=== PATIENT | male | born 1990 | race African-American/Black ===

== ENCOUNTER 2018-08-10 13:04 | Inpatient (IN) | payer OTHER ==
[~2018-08-10] VITALS: Ht 182.9 cm; Wt 81.2 kg
[~2018-08-10 13:04] MED LIST: CLARITIN10 MG PO; NORCO 5-325 TA1 EACH PO; NORCO 7.5-3251 EACH PO
[2018-08-10 13:13] VITALS: BP 143/92
[2018-08-10 13:30] LABS: ABSOLUTE NEUTROPHILS 7.9 thou/uL (1.4-8.2); BASOPHILS 0.3 % (0.0-2.0); EOSINOPHILS 0.2 % (0.0-3.0); HEMATOCRIT 53.3 % (42.0-52.0); HEMOGLOBIN 18.4 gm/dL (14.0-18.0); LYMPHOCYTES 17.2 % (24.0-44.0); MCH 28.6 pg (26.0-34.0); MCHC 34.6 g/dL (28.0-37.0); MCV 82.7 fL (80.0-100.0); MONOCYTES 7.5 % (1.0-8.0); PLATELET COUNT 203 thou/uL (150-400); POLYS 74.8 % (36.0-66.0); RBC 6.44 mil/uL (4.50-6.00); RDW 14.4 % (10.5-14.5); WBC 10.6 thou/uL (4.0-11.0)
[2018-08-10 13:40] LABS: CALCIUM 10.7 mg/dL (8.5-10.1); CREATININE 5.6 mg/dL (0.7-1.3)
[2018-08-10 13:46] LABS: TOTAL BILIRUBIN 0.7 mg/dL (<0.1-1.0)
[2018-08-10 14:25] LABS: URINE BLOOD 1+ (Negative); URINE CLARITY CLEAR; URINE COLOR YELLOW; URINE GLUCOSE-RANDOM* NEGATIVE (Negative); URINE KETONES NEGATIVE (Negative); URINE LEUKOCYTES-REFLEX NEGATIVE (Negative); URINE NITRITE-REFLEX NEGATIVE (Negative); URINE PROTEIN (DIPSTICK) 1+ (Negative); URINE SPECIFIC GRAVITY >= 1.030 (1.005-1.035); URINE UROBILINOGEN 0.2 E.U./dl (0.2-1.0)
[2018-08-10 14:28] LABS: ICTOTEST (BILI CONFIRMATORY) Negative (Negative); URINE BILIRUBIN NEGATIVE (Negative)
[2018-08-10 14:33] LABS: BACTERIA-REFLEX 1-9 Few /HPF (None Seen); HYALINE CASTS 0-3 Few /LPF (None Seen); SQUAMOUS 0-3 Few /LPF (0-3); URINE RBC 3-10 Few /HPF (0-2); URINE WBC-REFLEX 0-5 Rare /HPF (0-5)
[2018-08-10 14:35] LABS: AMP/METHAMP POSITIVE (Negative); BARBITURATES Negative (Negative); BENZODIAZEPINES Negative (Negative); COCAINE POSITIVE (Negative); METHADONE Negative (Negative); OPIATES Negative (Negative); PCP Negative (Negative)
[2018-08-10 14:36] LABS: CRYSTALS None Seen /LPF (None Seen)
[2018-08-10 15:42] VITALS: BP 134/92
[2018-08-10 18:07] LABS: URINE CREATININE-RANDOM* >400 mg/dL; URINE SODIUM-RANDOM* 28 mmol/L
[2018-08-10 19:22] VITALS: BP 142/85
[2018-08-11 05:54] LABS: HEMATOCRIT 46.3 % (42.0-52.0); MCH 28.5 pg (26.0-34.0); MCHC 34.1 g/dL (28.0-37.0); MCV 83.6 fL (80.0-100.0); RBC 5.54 mil/uL (4.50-6.00); RDW 14.3 % (10.5-14.5); WBC 6.3 thou/uL (4.0-11.0)
[2018-08-11 05:58] LABS: HEMOGLOBIN 15.8 gm/dL (14.0-18.0)
[2018-08-11 06:08] LABS: CALCIUM 9.1 mg/dL (8.5-10.1); POTASSIUM 3.6 mmol/L (3.5-5.1)
[2018-08-11 06:12] LABS: CREATININE 3.5 mg/dL (0.7-1.3)
[2018-08-11 07:40] VITALS: BP 128/77
[2018-08-11 18:57] VITALS: BP 124/73
[2018-08-12 06:22] LABS: HEMATOCRIT 39.4 % (42.0-52.0); MCH 28.6 pg (26.0-34.0); MCHC 33.7 g/dL (28.0-37.0); MCV 84.9 fL (80.0-100.0); RBC 4.64 mil/uL (4.50-6.00); RDW 14.2 % (10.5-14.5); WBC 5.1 thou/uL (4.0-11.0)
[2018-08-12 06:30] LABS: HEMOGLOBIN 13.3 gm/dL (14.0-18.0)
[2018-08-12 06:42] LABS: ALBUMIN 3.1 g/dL (3.4-5.0); CREATININE 1.9 mg/dL (0.7-1.3); MAGNESIUM 1.9 mg/dL (1.8-2.4); PHOSPHORUS 2.9 mg/dL (2.5-4.9); POTASSIUM 3.5 mmol/L (3.5-5.1)
[2018-08-12 14:01] VITALS: BP 120/82
[2018-08-12 19:19] VITALS: BP 143/84
[2018-08-13 05:39] LABS: ABSOLUTE NEUTROPHILS 3.3 thou/uL (1.4-8.2); BASOPHILS 0.4 % (0.0-2.0); EOSINOPHILS 0.9 % (0.0-3.0); HEMATOCRIT 36.1 % (42.0-52.0); HEMOGLOBIN 11.9 gm/dL (14.0-18.0); LYMPHOCYTES 23.5 % (24.0-44.0); MCH 28.3 pg (26.0-34.0); MCHC 33.1 g/dL (28.0-37.0); MCV 85.5 fL (80.0-100.0); PLATELET COUNT 138 thou/uL (150-400); POLYS 66.2 % (36.0-66.0); RBC 4.23 mil/uL (4.50-6.00); RDW 14.4 % (10.5-14.5)
[2018-08-13 05:49] LABS: CALCIUM 8.7 mg/dL (8.5-10.1); CREATININE 1.6 mg/dL (0.7-1.3); POTASSIUM 3.8 mmol/L (3.5-5.1)
[2018-08-13 07:49] VITALS: BP 137/84
[2018-08-13] MEDS ORDERED: ACETAMINOPHEN325 M1 PO (10:32)
[2018-08-13 12:59] VITALS: BP 137/84
== END 2018-08-13 14:17 | disposition home or self-care (01) | DRG 683 ==
LOC: ER 13:04 → EROBS 14:15 → 4W 17:10
PROVIDERS: Hospitalist; Physician Assistant
DX: N17.9 Acute kidney failure, unspecified (principal); M62.82 Rhabdomyolysis; F17.210 Nicotine dependence, cigarettes, uncomplicated; E87.6 Hypokalemia; E86.0 Dehydration; F12.90 Cannabis use, unspecified, uncomplicated; Z88.8 Allergy status to other drugs, medicaments and biological substances
CPT/HCPCS: 10047